=== PATIENT | male | born 1960 | race Caucasian/White ===

== ENCOUNTER 2020-08-09 17:35 | Emergency (ER) | payer MEDICAID, SELFPAY ==
[2020-08-09 17:36] VITALS: BP 160/82; PULSE 95; RESP 16; TEMP 36.4; O2SAT 98; BMI 30.4
--- NOTE | 2020-08-09 17:45 | RAD_ITS ---
STUDY: X-RAY - LEFT WRIST REASON FOR EXAM: Male, 59 years old. PT FELL INJURY OF HIS LEFT WRIST. PAIN AND SWELLING AT WRIST TECHNIQUE: 3 view(s) of the wrist were obtained. COMPARISON: None. FINDINGS: There is a comminuted intra-articular distal radial fracture. There is dorsal displacement of the distal radius. Normal visualized distal ulna. Normal radiocarpal articulation. Normal distal radioulnar articulation. Normal carpal bones. Normal carpal articulations. Normal carpometacarpal articulation of the thumb. Normal second through fifth carpometacarpal articulations. Normal visualized metacarpal bones. There are vascular calcifications. RAD/Wrist min 3 Views IMPRESSION: Distal radial fracture. Electronically Signed: Amy Gore MD at 19:47 EST Tel , Service support ,
[2020-08-09 17:56] LABS: Bedside Glucose 111 mg/dL (70-110)
--- NOTE | 2020-08-09 17:57 | CT_ITS ---
STUDY: CT BRAIN WITHOUT CONTRAST REASON FOR EXAM: Male, 59 years old. FALL AT WORK AND HAS LACERATION TO BACK OF HEAD RADIATION DOSAGE (If Supplied By Facility): CTDIvol = ( 44.99 ) mGy, DLP = ( 880.47 ) mGycm TECHNIQUE: Transaxial CT imaging of the brain was performed without administration of intravenous contrast material. Individualized dose optimization techniques were used for this CT. COMPARISON: No relevant priors. FINDINGS: Normal soft tissue structures. Normal calvarium. Normal size ventricles and extra-axial spaces for the patient''s age. Normal white matter tracts of the cerebral hemispheres. Normal basal ganglia and thalami. Normal brainstem. Normal cerebellum. There is no intracranial hemorrhage. There are no findings of an acute ischemic infarction. There is opacification of the paranasal sinuses. There is a round sclerotic focus within the right maxillary sinus measuring up to 1.1 x 0.8 cm which may reflect an osteoma. CT/Brain/Head without Contrast IMPRESSION: No acute intracranial process. Pansinusitis. Electronically Signed: Amy Gore MD at 19:41 EST Tel , Service support ,
[2020-08-09] MEDS: Lidocaine 1% (20 ml mdv) 20 ML Vial INFILT (18:25)
[2020-08-09] MEDS: Diphth,Pertuss(Acell),Tet Vac 0.5 ML Vial IM (18:25)
--- NOTE | 2020-08-09 19:37 | ED.VISSUMM ---
- ER Visit Summary Date of Service: 08/09/20 Chief Complaint: Fall History of Present Illness: The patient is a 59 M presenting after fall. Patient states he was at work. He states he did not eat a full meal today for lunch. He felt like his blood sugar was low. He is an insulin-dependent diabetic. He does not recall the events of the fall. He did hit his head. He has pain of his left wrist. Denies other injuries. Physical Examination: Vitals are stable. Patient is afebrile. Alert no acute distress. HEENT exam 4 cm posterior scalp laceration Neck is nontender Lungs are clear and equal bilaterally. Heart is regular rate and rhythm. Abdomen is soft nontender nondistended. Extremities diffuse left wrist tenderness with deformity. Neurovascularly intact. Skin is warm and dry. No focal neurologic deficit. Remainder of exam is unremarkable. Emergency Department Course and Treatment: He was given tetanus IM. Left wrist x-ray shows comminuted distal radius fracture. Patient will follow-up with Dr. Cardona. Ortho-Glass splint was applied. BGT was [address] head was obtained and shows No acute intracranial process. Laceration was repaired. Irrigated with saline, anesthetized with lidocaine. 4 bianca were placed. Patient tolerated this well. Repeat BGT 44. Patient then drank orange juice, ate candy and ate a sandwich. He feels back to baseline. He states he has been an insulin-dependent diabetic for many years. He feels comfortable with discharge home and will manage his blood sugar at home. He declines further observation. He will follow-up with his primary care physician and orthopedics. Advised wound care instructions. Advised to return to the ED for worsening complaints. Disposition: Discharge home Impression: Left distal radius fracture, scalp laceration, laceration repair, fall, hypoglycemia This note was generated with [employer] dictation software. It may contain incorrect words, spelling, and punctuation that were not noted in review of the chart prior to signing ED Disposition - Plan for ED Patient: Disposition: Home or Assisted Living Instructions: ED Fx Colles Wrist No Redu Requ, ED Laceration Scalp Sutures or [place] Prescriptions: Hydrocodone Bitart/Apap 5-325 [[place] 5MG-325MG] 1 tab PO Q6H PRN PRN 3 Days #10 tab PRN Reason: Pain Prescription Printed Referrals: Kaylee Cardona DO [STAFF PHYSICIAN] -
[2020-08-09 19:39] LABS: Anion Gap 3 (5-15); BUN 22 mg/dL (7-18); BUN/Creat Ratio 28.1 RATIO (10-20); Chloride 110 mmol/L (98-107); Creatinine, Serum 0.78 mg/dL (0.70-1.30); EST Glomerular Filtration Rate 108 mL/min (>60); Est Glom Filt Rate - Afr Amer 131 mL/min (>60); Estimated Creatinine Clearance 101.09 ml/min; Glucose 66 mg/dL (74-106); Sodium Level 140 mmol/L (136-145)
--- NOTE | 2020-08-09 20:37 | DCINST.ED_ITS ---
ED Disposition - Plan for ED Patient: Instructions: ED Fx Colles Wrist No Redu Requ, ED Laceration Scalp Sutures or [place] Prescriptions: Hydrocodone Bitart/Apap 5-325 [[place] 5MG-325MG] 1 tab PO Q6H PRN PRN 3 Days #10 tab PRN Reason: Pain Prescription Printed Referrals: Kaylee Cardona DO [STAFF PHYSICIAN] -
[2020-08-09 20:46] LABS: Bedside Glucose 44 mg/dL (70-110)
[2020-08-09 20:58] VITALS: BP 155/80; PULSE 78; O2SAT 98
== END 2020-08-09 20:58 | disposition home or self-care (01) ==
LOC: ED 20:03
PROVIDERS: Emergency Provider Emergency Medicine
DX: S52.592A Other fractures of lower end of left radius, initial encounter for closed fracture (principal); S01.01XA Laceration without foreign body of scalp, initial encounter; E11.649 Type 2 diabetes mellitus with hypoglycemia without coma; Z79.4 Long term (current) use of insulin; W19.XXXA Unspecified fall, initial encounter
CPT/HCPCS: 12002; 29125; 70450; 73110; 80048; 82962; 90471; 90715; 99282

== ENCOUNTER 2020-08-18 11:28 | Emergency (ER) | payer MEDICAID, SELFPAY ==
[2020-08-14 08:28] VITALS: BMI 29.7
[2020-08-18 11:29] VITALS: BP 137/69; PULSE 100; RESP 18; TEMP 36.4; O2SAT 98; BMI 29.0
--- NOTE | 2020-08-18 11:34 | ED.DCSUM_ITS ---
- ER Visit Summary Date of Service: 08/18/20 Chief Complaint: Staple removal History of Present Illness: The patient is a [address] Milner. He reports that he fell off a ladder and fractured his left wrist on August 07. He also had bianca placed to his scalp. He denies any pain. His review of systems is negative. Physical Examination: Vitals: Stable. Afebrile. General: Well-nourished and well-developed. Head: Normocephalic. [place] in place to the occipital area of his scalp. There is no erythema, induration or fluctuance to suggest infection. Neck: Supple, no lymphadenopathy. No JVD. Nontender. Cardiovascular: Regular rate and rhythm. No murmurs. Respiratory: No respiratory distress. Clear to auscultation bilaterally. Abdominal: Soft, nontender, nondistended, normal bowel sounds. No guarding, rebound, or peritoneal signs. Back: Nontender. Extremities: Volar splint on the left wrist. He has normal sensation light touch and less than 2-second capillary refill in his fingers. Skin: Normal color, no rash. Neurologic: Alert and oriented ?3. Cranial nerves II through XII are intact. Normal strength and sensation. Psych: Normal affect. Emergency Department Course and Treatment: Patient had a bianca removed. He tolerated this well. There is no bleeding. Treatment Plan: Patient be discharged instructions follow-up his doctor as needed. Return to the emergency department for any worsening symptoms. Disposition: To home in improved and stable condition. Impression: 1. Staple removal. This note was generated with [employer] dictation software. It may contain incorrect words, spelling, and punctuation that were not noted in review of the chart prior to signing ED Disposition - Plan for ED Patient: Instructions: ED Stitches/Staple Removal No ... Referrals: Fausto Ponce MD [Primary Care Provider] - As Needed
== END 2020-08-18 11:58 | disposition home or self-care (01) ==
LOC: ED 11:53
PROVIDERS: Emergency Provider Emergency Medicine; PCP Family Medicine
DX: Z48.02 Encounter for removal of sutures (principal); F17.200 Nicotine dependence, unspecified, uncomplicated
CPT/HCPCS: 99282

== ENCOUNTER → 2020-08-18 12:30 | Outpatient (CLI) | payer MEDICAID, SELFPAY ==
[2020-08-14 08:28] VITALS: BMI 29.7
--- NOTE | 2020-08-18 11:25 | EKG12_ITS ---
Test Reason : PREOP Blood Pressure : / mmHG Vent. Rate : 102 BPM Atrial Rate : 102 BPM P-R Int : 140 ms QRS Dur : 066 ms QT Int : 336 ms P-R-T Axes : 085 068 063 degrees QTc Int : 437 ms Sinus tachycardia Otherwise normal ECG Confirmed by DEEPTI RUEDA, CHRIS ([id number]), health editor NAVJOT GONZALEZ ([id number]) on 08/22/2020 4:18:41 PM Referred By: Kaylee Cardona Confirmed By:CHRIS TATUM MD
--- NOTE | 2020-08-22 11:57 | HP_ITS ---
Intake Vital Signs 08/14/20 Height 5 ft 8 in 08/14/20 Weight: 196 lb Intake Visit Reasons: LEFT WRIST Accompanied by: Self Is patient in pain?: Yes Pain scale (1-10): 5 Allergies No Known Allergies Allergy (Verified 08/14/20 08:29) Medications Insulin Aspart [Novolog] 35 unit SQ BID 08/09/20 [History Confirmed 08/14/20] Insulin Glargine,Hum.rec.anlog [Lantus] 45 unit SQ QHS 08/09/20 [History Confirmed 08/14/20] Simvastatin 40 mg PO QHS 08/09/20 [History Confirmed 08/14/20] Lisinopril 40 mg PO DAILY 08/14/20 [History] Lyrica 40 mg PO DAILY 08/14/20 [History] hydrocodone 5 mg-acetaminophen 325 mg tablet See Rx Instructions PO Q6H PRN #30 tab 08/14/20 [Rx Confirmed 08/14/20] meloxicam 15 mg tablet 15 mg PO DAILY 08/14/20 [History Confirmed 08/14/20] REPLACED BY [facility] Medical History (Updated 08/14/20 @ 08:35 by Yennifer Lovelace) Carpal tunnel syndrome on both sides (Acute) polyp removed from nasal cavity (Acute) Surgical History (Updated 08/14/20 @ 08:35 by Yennifer Lovelace) H/O knee surgery (Acute) Family History (Updated 08/14/20 @ 08:35 by Yennifer Lovelace) Father Cancer Mother Heart disease Social History (Updated 08/14/20 @ 09:31 by JOANN Weldon) Smoking Status: Current every day smoker HPI LEFT WRIST: Details: Parts of this documentation were recorded by a scribe, this documentation accurately reflects the service provided and the decisions made by , JOANN Rosario 08/14/20 0823. OLLIE LUNDBERG is a 59 year old M here today as a new patient to establish. Patient was seen in the [facility] ER for fracture of his left wrist on 08/09/2020. Patient was fixing a door while on a ladder. Patient was nervous and fell off a 6-8ft ladder. Patient does not know how he landed. States he hit his head. Patient is able to move his digits of affected hand. Patient states he will need pain medication d/t being in so much pain. Pain is rated: 5/10 from the pain scale. Patient denies previous injuries to his left wrist and denies previous surgeries. ROS Const Denies system reviewed and no additional complaints, except as docu, Denies body aches, Denies chills, Denies fatigue, Denies fever(s), Denies frequent falls, Denies headache(s) ENT Denies headache(s) Card Denies system reviewed and no additional complaints, except as docu, Denies chest pain, Denies shortness of breath Resp Denies system reviewed and no additional complaints, except as docu, Denies chest congestion, Denies cough, Denies shortness of breath GI Denies system reviewed and no additional complaints, except as docu, Denies abdominal pain, Denies bloating, Denies constipation, Denies incontinent of stools, Denies loose stools Denies system reviewed and no additional complaints, except as docu, Denies urinary incontinence Musc Reports system reviewed and no additional complaints, except as docu, Reports joint pain, Reports numbness, Reports stiffness Neuro No frequent falls, No headache(s), Yes numbness Endo Denies fatigue Ortho Exam Right Wrist/Hand Skin/Wound: Yes Swelling, Yes Ecchymosis Left Wrist/Hand Date of injury: 08/09/20 Skin/Wound: Yes Swelling, Yes Ecchymosis, Yes capillary refill normal Left Wrist: Yes TTP Fracture site; no ROM-Extension 0-60, no ROM-Flexion 0-80, no ROM-Pronation 0-80 or no ROM-Supination 0-90 Sensation: Radial: I, Median: I WRIST: Swelling of the distal extremity including some of the fingers. Intact sensation of the fingers and normal capillary refill of the fingers. Motor function of the the fingers intact. Assessment & Plan Problems 1. Other closed intra-articular fracture of distal end of left radius, initial encounter S53.605O Plan Presents the office today for emergency department follow-up of left distal radius fracture. Patient states he was up on a ladder and fell approximately 4 to 5 feet landing on an outstretched hand trying to brace himself. Patient was seen in the emergency department where was diagnosed with distal radius fracture. He was placed in a splint and told to follow-up in our office today. We did review the x-rays showing an intra-articular comminuted fracture of the distal radius with some impaction and shortening. At this time we discussed that surgical intervention is warranted at this time. We are going to proceed with a CT scan first to evaluate the fracture site at more detail. At this time risks and benefits of the surgical procedure were discussed with patient to include but not excluded blood loss, blood clot, infections, neurovascular injury, failure of procedure, loss of limb loss of life from anesthesia. We also discussed COVID-19 risks which will be a part of his preop testing. We did discuss that as a diabetic he does have some increased risk for infections and nonhealing. Patient be notified by our office to set up the surgery date once the CT scan is completed. Patient will then be notified by the surgery department for preanesthesia testing. He can notify our office if he has any concerns or questions in the meantime. This note was generated with [employer] dictation software. It may contain incorrect words, spelling, and punctuation that were not noted in checking the note before signing. Orders Orders: Extremity Upper without Contra Today S52.502A Medications New: hydrocodone-acetaminophen 5-325 mg ([place]) 1-2 tabs PO every 6 hours PRN; No driving while taking narcotics 30 tabs 0RF pain Coding Level of Care Code Off vis,new,level 3 Diagnoses Other closed intra-articular fracture of distal end of left radius, initial encounter S52.572A ??Encounter type: initial encounter ??Fracture type: closed ??Fracture morphology: other intra-articular ??Laterality: left
== END ==
PROVIDERS: PCP Family Medicine; Referring Provider Orthopaedic Surgery; Visit Provider Orthopaedic Surgery
DX: Z01.818 Encounter for other preprocedural examination (principal); Z20.828 Contact with and (suspected) exposure to other viral communicable diseases; R00.0 Tachycardia, unspecified; Z79.899 Other long term (current) drug therapy; Z79.4 Long term (current) use of insulin; F17.200 Nicotine dependence, unspecified, uncomplicated
CPT/HCPCS: 87426; 93005; C9803

== ENCOUNTER → 2020-08-21 13:47 | Outpatient (CLI) | payer MEDICAID, SELFPAY ==
[2020-08-14 08:28] VITALS: BMI 29.7
[2020-08-18 11:29] VITALS: BMI 29.0
--- NOTE | 2020-08-21 13:53 | CT_ITS ---
STUDY: CT SCAN WRIST LEFT REASON FOR EXAM: Male, 59 years old. DISTAL RADIUS FX -- FELL OFF LADDER 08/09 -- SURGERY TOMORROW RADIATION DOSAGE (If Supplied By Facility): CTDIvol = ( 24.58 ) mGy, DLP = ( 1153.25 ) mGycm. Individualized dose optimization techniques were used for this CT.? TECHNIQUE: Multiple axial tomographic images were obtained without intravenous contrast administration. Coronal and sagittal reconstruction was obtained as well. COMPARISON: Comparison is made with prior radiograph dated 08/09/2020. FINDINGS: There is evidence of a comminuted intra-articular distal radial fracture. There is evidence of a dorsal facing. Diffuse soft tissue swelling. CT/Extremity Upper without Contra IMPRESSION: Comminuted intra-articular fracture of the distal radius with evidence of dorsal facing. Soft tissue swelling. Electronically Signed: Kevin Hagen, at 14:53 EST , Service support ,
== END ==
PROVIDERS: PCP Family Medicine; Referring Provider Physician Assistant; Visit Provider Physician Assistant
DX: S52.502A Unspecified fracture of the lower end of left radius, initial encounter for closed fracture (principal)
CPT/HCPCS: 73200

== ENCOUNTER 2020-08-31 03:55 | Emergency (ER) | payer MEDICAID, SELFPAY ==
[2020-08-31 03:56] VITALS: BP 170/82; PULSE 103; RESP 16; TEMP 36.4; O2SAT 99; BMI 29.0
--- NOTE | 2020-08-31 04:13 | ED.VIS.GEN ---
History of Present Illness Chief Complaint: Upper Extremity Injury Narrative: This patient is a 59-year-old male who presents with numbness and paralysis of the left upper extremity. He had surgery yesterday for a left radius fracture. He underwent an ORIF. This was performed at [facility]. They finished at about 6 PM which was approximately 10 hours ago. They did perform an axillary nerve block. He was told that he should have return of sensation after about 6 hours. He is concerned because it has been tender and he still does not have movement or sensation. Past Medical History - Allergies and Home Meds Allergies/Adverse Reactions: Allergies No Known Allergies Allergy (Verified 08/31/20 03:59) Primary Care Physician: Fausto Ponce MD [Primary Care Provider] - Past Medical History: - - Diabetes, hypertension, hyperlipidemia Smoking Status: Current every day smoker Review of Systems All systems negative except as indicated General: Denies: Fever Eyes: Denies: Visual changes - bilaterally Cardiovascular: Denies: Chest pain Respiratory: Denies: Dyspnea Gastrointestinal: Denies: Nausea, Vomiting Musculoskeletal: Reports: - - Left upper extremity paralysis and numbness Skin: Denies: Rash Neurological: Denies: Headache Physical Exam Vital Signs/Narrative: Vital Signs Temp Pulse Resp BP Pulse Ox 08/31/20 03:56 97.6 F L 103 H 16 170/82 H 99 Inital Vital Signs reviewed: Yes General: Well nourished Head: Normocephalic Eyes: EOMI ENT: Moist mucous membranes Neck: Supple Cardiovascular: Regular rhythm Respiratory: No distress Extremities: - - Left wrist is in a splint his fingers are warm with brisk capillary refill, he has sensation over the deltoid and proximal left upper arm he does not have any sensation distal to this point he is able to abduct the shoulder cannot flex or extend the elbow or wrist no movement at fingers Skin: Normal color Neurological: Alert Diagnostic/Tx/Re-eval - Medical Decision Making I spoke to the patient's orthopedic surgeon, Dr. Mendoza. Patient was reassured. He was advised that the block may last up to 18 to 24 hours and that this is still normal. He does however understand return for any new or worsening symptoms otherwise to follow-up as an outpatient. ED Disposition - Plan for ED Patient: Disposition: Home or Assisted Living Diagnosis: Encounter for medical screening examination Instructions: ED Medical Screening Exam, Nonemergent Referrals: Fausto Ponce MD [Primary Care Provider] -
[2020-08-31 04:52] VITALS: RESP 16
== END 2020-08-31 04:53 | disposition home or self-care (01) ==
PROVIDERS: Emergency Provider Emergency Medicine; PCP Family Medicine
DX: R20.0 Anesthesia of skin (principal); F17.200 Nicotine dependence, unspecified, uncomplicated; E78.5 Hyperlipidemia, unspecified; I10 Essential (primary) hypertension; E11.9 Type 2 diabetes mellitus without complications; Z79.4 Long term (current) use of insulin
CPT/HCPCS: 99282